=== PATIENT | female | born 1985 | race Caucasian/White ===

== ENCOUNTER 2016-10-15 13:55 | Emergency (ER) | payer OTHER ==
[~2016-10-15] VITALS: Ht 162.6 cm; Wt 75.5 kg
[2016-10-15] MEDS ORDERED: IBUPROFEN 800 MG TABLET PO ONE (14:30)
[2016-10-15 15:14] VITALS: BP 118/61
== END 2016-10-15 15:16 | disposition home or self-care (01) ==
LOC: EMS 13:56
DX: S20.229A Contusion of unspecified back wall of thorax, initial encounter (principal); M62.830 Muscle spasm of back; W01.0XXA Fall on same level from slipping, tripping and stumbling without subsequent striking against object, initial encounter; Y93.89 Activity, other specified; Y92.89 Other specified places as the place of occurrence of the external cause; Y99.8 Other external cause status
CPT/HCPCS: 99283

== ENCOUNTER 2016-11-16 22:15 | Emergency (ER) | payer OTHER ==
[~2016-11-16] VITALS: Ht 162.6 cm; Wt 76.4 kg
[2016-11-16] MEDS ORDERED: CEPH500 PO (22:34)
[2016-11-17 01:05] VITALS: BP 111/77
== END 2016-11-17 01:39 | disposition left against medical advice (07) ==
LOC: EMS 22:17
DX: M53.3 Sacrococcygeal disorders, not elsewhere classified (principal); F43.10 Post-traumatic stress disorder, unspecified
CPT/HCPCS: 72220; 99284

== ENCOUNTER 2017-03-08 22:45 | Emergency (ER) | payer OTHER ==
[~2017-03-08] VITALS: Ht 162.6 cm; Wt 79.1 kg
[~2017-03-08 22:45] MED LIST: CEPH500 PO
[2017-03-08] MEDS ORDERED: 0.9% SODIUM CHLORIDE 5 ML NEB SOLUTION NEB ONE (22:53)
[2017-03-08] MEDS ORDERED: ALBU8.5H8 IH (22:59)
[2017-03-08] MEDS ORDERED: MONT10TA21 PO (22:59)
[2017-03-08] MEDS ORDERED: IPRATROPIUM BROMIDE 0.5 MG/2.5 ML NEB SOLUTION NEB ONE (23:00)
[2017-03-08] MEDS ORDERED: ALBUTEROL SULFATE 2.5 MG/0.5 ML NEB SOLUTION NEB ONE (23:00)
[2017-03-08] MEDS ORDERED: PredniSONE 20 MG TABLET PO ONE (23:30)
[2017-03-09 01:11] VITALS: BP 118/76
== END 2017-03-09 01:26 | disposition home or self-care (01) ==
LOC: EMS 22:46
DX: J45.909 Unspecified asthma, uncomplicated (principal)
CPT/HCPCS: 71010; 94060; 94644; 99285; J7512; 94640

== ENCOUNTER 2017-03-10 08:22 | Emergency (ER) | payer OTHER ==
[~2017-03-10] VITALS: Ht 162.6 cm; Wt 79.5 kg
[~2017-03-10 08:22] MED LIST changes: +ALBU8.5H8 IH; -CEPH500 PO; +MONT10TA21 PO
[2017-03-10] MEDS ORDERED: ALBUTEROL SULFATE 2.5 MG/0.5 ML NEB SOLUTION NEB ONE (08:45)
[2017-03-10] MEDS ORDERED: AZITHROMYCIN 250 MG TABLET PO ONE (08:45)
[2017-03-10] MEDS ORDERED: 0.9% SODIUM CHLORIDE 5 ML NEB SOLUTION NEB ONE (09:16)
[2017-03-10 10:39] VITALS: BP 106/65
== END 2017-03-10 10:46 | disposition home or self-care (01) ==
LOC: EMS 08:23
DX: J06.9 Acute upper respiratory infection, unspecified (principal); F43.10 Post-traumatic stress disorder, unspecified
CPT/HCPCS: 94640; 99283

== ENCOUNTER 2017-04-23 22:22 | Emergency (ER) | payer OTHER ==
[~2017-04-23] VITALS: Ht 162.6 cm; Wt 80.0 kg
[2017-04-23 22:25] VITALS: BP 114/82
[2017-04-23] MEDS ORDERED: SILVER SULFADIAZINE 1% 25 GM CREAM TP ONE (22:45)
[2017-04-23] MEDS ORDERED: ACETAMINOPHEN 325 MG TABLET PO ONE (22:45)
== END 2017-04-23 23:12 | disposition home or self-care (01) ==
LOC: EMS 22:23
DX: T23.101A Burn of first degree of right hand, unspecified site, initial encounter (principal); X10.1XXA Contact with hot food, initial encounter; Y93.89 Activity, other specified; Y92.89 Other specified places as the place of occurrence of the external cause; Y99.8 Other external cause status
CPT/HCPCS: 16000; 99284

== ENCOUNTER 2017-06-07 15:17 | Emergency (ER) | payer OTHER ==
[~2017-06-07] VITALS: Ht 162.6 cm; Wt 81.5 kg
[2017-06-07] MEDS ORDERED: FLUT16H NASAL (15:35)
[2017-06-07] MEDS ORDERED: AMOX250C4 PO (15:35)
[2017-06-07] MEDS ORDERED: IBUPROFEN 800 MG TABLET PO ONE ×2 (19:00)
[2017-06-07 19:24] VITALS: BP 119/77
== END 2017-06-07 19:27 | disposition home or self-care (01) ==
LOC: EMS 15:19
DX: H66.92 Otitis media, unspecified, left ear (principal); H72.92 Unspecified perforation of tympanic membrane, left ear
CPT/HCPCS: 99283